=== PATIENT | female | born 1955 ===

== ENCOUNTER → 2019-08-06 06:00 | Outpatient (CLI) | payer OTHER | END | disposition home or self-care (01) | LOC: LAB 06:00 → ADM 13:00 → AMB-ENDOS 08-12 13:00 → EDSTATUS 08-12 13:00 | DX: K57.32 Diverticulitis of large intestine without perforation or abscess without bleeding (principal); R19.4 Change in bowel habit; R10.32 Left lower quadrant pain; Z01.818 Encounter for other preprocedural examination ==